=== PATIENT | female | born 1985 | race Caucasian/White ===

== ENCOUNTER 2016-07-31 19:45 | Emergency (ER) | payer OTHER ==
[2016-07-31 19:51] VITALS: BP 134/67; PULSE 96; TEMP 99.5; BMI 18.3
[2016-07-31] MEDS ORDERED: IBUPROFEN 400 MG TABLET (FP) PO ONE ×2 (20:16)
--- NOTE | 2016-07-31 20:22 | PDOC ---
History of Present Illness - General Chief Complaint: Sore Throat Stated Complaint: COLD SYMPTOMS Time Seen by Provider: 07/31/16 20:08 History Source: Patient - History of Present Illness Timing/Duration: reports: other Associated Symptoms: reports: sore throat. denies: cough, earache, fever/chills , nasal congestion Past History - Past Medical History Allergies/Adverse Reactions: Allergies Allergy/AdvReac Type Severity Reaction Status Date / Time No Known Allergies Allergy Verified 07/31/16 19:47 Home Medications: Ambulatory Orders NK [No Known Home Medication] 07/31/16 Asthma: No Cancer: No Cardiac Disorders: No Diabetes: No HTN: No Seizures: No Thyroid Disease: No - Surgical History Abdominal Surgery: Yes (bowel resection 12/2013) - Immunization History Immunization Up to Date: Yes - Psycho/Social/Smoking Cessation Hx Anxiety: No Suicidal Ideation: No Smoking History: Never smoked Have you smoked in the past 12 months: No Hx Alcohol Use: No Drug/Substance Use Hx: No Substance Use Type: None Hx Substance Use Treatment: No Review of Systems - Review of Systems Constitutional: No: Chills, Fever HEENTM: Yes: Throat Pain. No: Ear Pain Respiratory: No: Cough *Physical Exam - Vital Signs Last Vital Signs Temp Pulse Resp BP Pulse Ox 99.5 F 96 H 18 134/67 97 07/31/16 19:48 07/31/16 19:48 07/31/16 19:48 07/31/16 19:48 07/31/16 19:48 - Physical Exam General Appearance: Yes: Appropriately Dressed. No: Apparent Distress HEENT: positive: Normal Voice, Tonsillar Exudate Neck: positive: Supple. negative: Lymphadenopathy (R), Lymphadenopathy (L) Respiratory/Chest: negative: Respiratory Distress Integumentary: positive: Dry, Warm Neurologic: positive: Fully Oriented, Alert, Normal Mood/Affect Medical Decision Making - Medical Decision Making 07/31/16 20:18 30 yo F, significant history, presenting with sore throat for 2 weeks. States she had the flu several weeks ago which she diagnosed herself at home and states most of her sxs improved but sore throat has persisted. Complaining of increased pain with swallowing. No ear pain, cough, fever or chills. Child at home with similar symptoms as per patient. Patient well-appearing and stable with exudative lesions on right side of tonsils, no swelling and no e/o [employer]ILY [employer]IST[employer] at this time. Rule out strep. Pain control in ED 07/31/16 20:22 07/31/16 20:48 Rapid strep negative. Dc w/ pain control for m/l viral pharyngitis *DC/Admit/Observation/Transfer Diagnosis at time of Disposition: Viral pharyngitis - Discharge Dispostion Disposition: HOME Condition at time of disposition: Good - Patient Instructions Printed Discharge Instructions: DI for Viral Pharyngitis Additional Instructions: The test in ED was negative for strep infection. You most likely have a virus. Taking Motrin for pain as needed
== END 2016-07-31 20:53 | disposition home or self-care (01) ==
LOC: JERFT 19:45
DX: J02.9 Acute pharyngitis, unspecified (principal); B97.89 Other viral agents as the cause of diseases classified elsewhere
CPT/HCPCS: 87070; 87430; 99281-25